=== PATIENT | male | born 1990 | race Caucasian/White ===

== ENCOUNTER 2017-04-26 12:38 | Day surgery (SDC) | payer OTHER ==
[2017-04-19 13:38] VITALS: BMI 25.7
[2017-04-26] MEDS ORDERED: Bupivacaine-Epi 0.25%-1:200,000 PF Inj ONE (13:59)
[2017-04-26] MEDS ORDERED: Lidocaine 1% Inj (20ml) ONE (14:00)
[2017-04-26] MEDS ORDERED: ceFAZolin IV 2 gm in Dextrose 1 GM/50 ML BAG IVPB ONE (14:00)
[2017-04-26] MEDS ORDERED: ceFAZolin IV 1 gm in Dextrose 0 GM/0 ML BAG IVPB ONE (14:00)
[2017-04-26] MEDS ORDERED: Lactated Ringer's 1,000 ML IV ONE ×2 (14:15→19:30)
[2017-04-26] MEDS ORDERED: Midazolam 2 MG/2 ML VIAL ONE (14:21)
[2017-04-26] MEDS ORDERED: Propofol 10 mg/ml Inj (20 ML) ONE (14:22)
[2017-04-26] MEDS ORDERED: Lidocaine Hydrochloride 5 ML INJ ONE (14:22)
[2017-04-26] MEDS ORDERED: Morphine 4 MG/ML VIAL ONE (17:27)
--- NOTE | 2017-04-26 18:13 | PCM.SURG1 ---
Surgeon's Initial Post Op Note - Surgeon's Notes Surgeon: Dr. Heredia Ware[employer] Selector: Kalani Agustin pGY2, Ashutosh PGY1 Type of Anesthesia: General LMA Pre-Operative Diagnosis: Multiple lipoma Operative Findings: multiple small lipoma 32 total Post-Operative Diagnosis: Same Operation Performed: excision of lipoma b/l upper exteremity and L trunk Specimen/Specimens Removed: 32 lipoma Estimated Blood Loss: EBL {In ML}: 10 Blood Products Given: N/A Drains Used: No Drains Post-Op Condition: Good Date of Surgery/Procedure: 04/26/17 Time of Surgery/Procedure: 18:16
[2017-04-26] MEDS ORDERED: HYDROmorphone 0.5 mg/0.5 ml ISec IVP PRN (18:15)
[2017-04-26] MEDS ORDERED: Lactated Ringer's 1,000 ML IV SCH (18:15)
[2017-04-26 20:52] VITALS: PULSE 83; RESP 15; TEMP 97.5
[2017-04-26 21:38] VITALS: BP 112/53; O2SAT 95
--- NOTE | 2017-04-29 07:47 | OP ---
PROCEDURE DATE: 04/26/2017 PREOPERATIVE DIAGNOSES: 1. Multiple lipoma of the left and right upper extremity. 2. Large lipoma of left flank of approximately 6 x 4 cm size. POSTOPERATIVE DIAGNOSES: 1. Multiple lipoma of the left and right upper extremity. 2. Large lipoma of left flank of approximately 6 x 4 cm size. PROCEDURES DONE: 1. Excision of lipoma of the right forearm medial one. 2. Excision of lipoma of the right forearm medial two. 3. Excision of lipoma of the right forearm medial three. 4. Excision of lipoma of the right forearm medial four. 5. Excision of lipoma of the right forearm lateral one. 6. Excision of lipoma of the right forearm lateral two. 7. Excision of lipoma of the right forearm lateral three. 8. Excision of lipoma of the right arm anterior one. 9. Excision of lipoma of the right arm anterior two. 10. Excision of lipoma of the right arm posterior one. 11. Excision of lipoma of the right arm posterior two. 12. Excision of lipoma of the right arm posterior three. 13. Excision of lipoma of the right elbow. 14. Excision of lipoma of the left forearm medial one. 15. Excision of lipoma of the left forearm medial two. 16. Excision of lipoma of the left forearm medial three. 17. Excision of lipoma of the left forearm medial four. 18. Excision of lipoma of the left forearm lateral one. 19. Excision of lipoma of the left forearm lateral two. 20. Excision of lipoma of the left arm anterior. 21. Excision of lipoma of the left arm anterior two. 22. Excision of lipoma of the left arm posterior one. 23. Excision of lipoma of the left forearm lateral two. 24. Excision of lipoma of the left elbow medial. 25. Excision of lipoma of the left elbow lateral. 26. Excision of lipoma of the left flank lipoma. SURGEON: Renny Heredia MD ASSISTANTS: Jah, PGY-1 resident. TYPE OF ANESTHESIA: General endotracheal tube anesthesia. ESTIMATED BLOOD LOSS: Around 50 mL for all the procedures together. COMPLICATIONS: None. PATHOLOGY: All 32 lipomas were sent separately. INTRAOPERATIVE FINDINGS: The patient had variable size of the lipoma of the upper extremity starting from 4 x 4 cm, 3 x 3 cm, 2 x 2 cm and 1 x 1 cm size and left flank lipoma was 6 x 4 cm size and total 32 lipoma was sent from the all the size together. DESCRIPTION OF PROCEDURE: On intraoperative steps, this is a 26-year-old male who was diagnosed with multiple lipoma of the upper extremity and the left flank and the patient was consented for excision of the lipoma of the upper extremity and left flank, brought to the OR, placed him on the operating table. After induction of the anesthesia, the bilateral upper extremity as well as left flank was prepped and draped in usual sterile fashion and first left side as well as the right side and left flank incision was made and the lipoma of the left forearm lateral position multiple, left forearm medial position multiple, left arm anterior multiple, left arm posterior multiple, then the right forearm medial multiple, then the right forearm lateral multiple and the right arm anterior multiple, right arm posterior multiple, right elbow multiple, left elbow multiple and left flank large lipoma of approximately 6 x 4 cm, they were all excised after one by one. The multiple incision was made. All the wound was irrigated and all the lipoma were sent separately. All the wound was closed in two layers, subcutaneous with 2-0 Vicryl, skin with a 4-0 Monocryl and dry sterile dressing was applied. The patient tolerated the procedure well. Count of the instrument was correct. The patient was extubated in OR and sent to the postanesthesia care unit in stable condition. Renny Heredia MD
== END 2017-04-26 21:20 | disposition home or self-care (01) ==
LOC: C.SDS 12:38
PROVIDERS: ATTEND Surgery Surgical Critical Care
DX: D17.22 Benign lipomatous neoplasm of skin and subcutaneous tissue of left arm (principal); D17.5 Benign lipomatous neoplasm of intra-abdominal organs; D17.21 Benign lipomatous neoplasm of skin and subcutaneous tissue of right arm
CPT/HCPCS: 11406; 88304; J0690; J1170; J2250; J2270; J2405; J2704; J3010; J7120